=== PATIENT | male | born 1995 | race Caucasian/White ===

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

== ENCOUNTER 2018-02-13 17:11 | Emergency (ER) | payer SELFPAY ==
[~2018-02-13] VITALS: Ht 185.4 cm; Wt 55.0 kg
[~2018-02-13 17:11] MED LIST: ZOFR4TAB3 SL; ZYRT10CA PO
[2018-02-13 17:27] VITALS: BP 125/71; PULSE 98; RESP 18; TEMP 98.5; O2SAT 98
--- NOTE | 2018-02-13 17:48 | PD ---
HPI Chief Complaint: Medical Clearance Time Seen by Provider: 17:43 Travel History International Travel<30 days: No Contact w/Intl Traveler<30days: No Traveled to known affect area: No History of Present Illness HPI 22-year-old male presents to the emergency room requesting HIV testing. Patient states he just had unprotected sex and would like to be checked for STDs. Patient was informed that the emergency room does not routinely check for STDs, and he then requested to be checked for anemia instead. Patient states he usually gets cold feet, especially after sitting for a long time. His father told him he is probably anemic because he eats a diet mostly consisting of fast food. He denies any other symptoms. Patient has no fever, chills, penile discharge, dysuria, urgency, frequency abdominal pain, hematemesis, hematochezia, melena, nausea, vomiting, or lightheadedness. History Social History Alcohol Use: No ("NOT ANYMORE") Tobacco Use: No Allergies-Medications (Allergen,Severity, Reaction): Coded Allergies: No Known Allergies (Verified , 11/23/16) Reported Meds & Prescriptions Reported Meds & Active Scripts Active Zofran Odt (Ondansetron Odt) 4 Mg Tab 4 Mg SL Q6HR PRN Reported Zyrtec Allergy (Cetirizine HCl) 10 Mg Cap 10 Mg PO DAILY Review of Systems Except as stated in HPI: all other systems reviewed are Neg Physical Exam Narrative GENERAL: Well-nourished, well-developed male in no acute distress. Afebrile. Ambulatory SKIN: Focused skin assessment warm/dry. HEAD: Normocephalic. EYES: No scleral icterus. No injection or drainage. NECK: Supple, trachea midline. No JVD or lymphadenopathy. CARDIOVASCULAR: Regular rate and rhythm without murmurs, gallops, or rubs. RESPIRATORY: Breath sounds equal bilaterally. No accessory muscle use. GASTROINTESTINAL: Abdomen soft, non-tender, nondistended. Data Data Last Documented VS Vital Signs Date Time Temp Pulse Resp B/P (MAP) Pulse Ox O2 Delivery O2 Flow Rate FiO2 02/13/18 17:27 98.5 98 18 125/71 (89) 98 MDM Medical Screen Exam Complete: Yes Emergency Medical Condition: No Differential Diagnosis Routine testing Narrative Course 22-year-old male presents to the emergency room requesting routine testing for STDs and anemia. Patient recently had unprotected sex but is completely asymptomatic. He was informed that we do not routinely test for STDs in the emergency room and given information to go to the [facility] department. He then asked to be tested for anemia instead. He was referred to [facility] for outpatient routine testing. There are no urgent or emergent medical conditions at this time. A medical screening exam was performed: At the time of evaluation the presenting medical condition was determined not to be of an emergent nature. The patient was given the option of receiving additional care, but declined. Patient was given options for additional community resources from which to obtain care. The Patient Has Been advised to seek medical attention for their presenting complaint. The patient has been advised to return to the ER at any time if an emergent condition develops. Primary Impression: Encounter for medical screening examination Disposition: 01 DISCHARGE HOME Condition: Stable Mena De Luna Feb 13, 2018 17:48
== END 2018-02-13 17:49 | disposition left against medical advice (07) ==
LOC: NEPK 17:11
DX: Z03.89 Encounter for observation for other suspected diseases and conditions ruled out (principal)
CPT/HCPCS: 99281